=== PATIENT | female | born 1990 | race Hispanic/Latino ===

== ENCOUNTER → 2018-11-27 | Outpatient (REF) ==
[~2018-11-27] MED LIST: AMOXICILLIN500 MG OR; BACTRIM DS1 TAB PO; CEPHALEXIN500 MG PO; CIPROFLOXACN500 MG PO; LORTAB5 PO; MEDDOSEPAK PO; MOTRIN800 MG/TAB PO; PRENATA4 PO; ULTRAM50 M1 PO; ULTRAM50 MG PO; ZOFRAN ODT8 MG PO; ZOFRAN4 MG/TAB PO
== END | disposition home or self-care (01) | DRG 641 ==
LOC: LAB 10:33
PROVIDERS: ATTEND Nurse Practitioner Adult Health
DX: R73.9 Hyperglycemia, unspecified (principal)

== ENCOUNTER 2021-12-26 21:47 | Emergency (ER) | payer BC ==
[~2021-12-26] VITALS: Ht 149.9 cm; Wt 88.0 kg
[2021-12-26 22:05] VITALS: BP 132/82
[2021-12-26 22:15] VITALS: BP 138/79
[2021-12-26 22:59] VITALS: BP 123/71
[2021-12-26 23:01] LABS: IMMATURE GRANULOCYTES 0.1 % (0.0-5.0); MEAN CORPUSCULAR HGB 28.9 pG CALC (26.0-32.0); MEAN CORPUSCULAR HGB CONC 32.1 g/dL CAL (32.0-36.0); NEUT# 8.9 thou/uL (2.00-7.15); RED BLOOD COUNT 4.32 mill/uL (4.20-5.60); RED CELL DISTRI WIDTH 12.4 % (11.5-15.5)
[2021-12-26 23:05] LABS: HEMATOCRIT 38.9 % (37.0-47.0); HEMOGLOBIN 12.5 g/dl (12.0-16.0)
[2021-12-26 23:06] LABS: URINE BILIRUBIN - DIPSTICK NEGATIVE (NEGATIVE); URINE BLOOD DIPSTICK TRACE-INTACT (NEGATIVE); URINE COLOR YELLOW; URINE GLUCOSE - DIPSTICK NEGATIVE (NEGATIVE); URINE KETONE NEGATIVE (NEGATIVE); URINE LEUK ESTERASE NEGATIVE (NEGATIVE); URINE PROTEIN - DIPSTICK NEGATIVE (NEG-TRACE); URINE SPECIFIC GRAVITY 1.025; URINE UROBILINOGEN - DIPSTICK 0.2 E.U./dL (0.2)
[2021-12-26 23:09] LABS: URINE NITRITE - DIPSTICK NEGATIVE (Negative)
[2021-12-26 23:15] VITALS: BP 126/72
[2021-12-26 23:35] LABS: ALBUMIN 4.3 g/dL (3.2-5.0); ALKALINE PHOSPHATASE 96 u/l (38-126); BUN 13 mg/dL (7-17); BUN/CREATININE RATIO 15 (12-20 (CALC)); CHLORIDE 107 mmol/l (95-108); CREATININE 0.9 mg/dL (0.5-1.0); ETHYL ALCOHOL 0 mg/dl (0-30); GFR > 60 ML/MIN (>=60 (CALC)); GFR FOR AFR.AMER. > 60 ML/MIN (>=60 (CALC)); LIPASE 73 u/l (23-300); POTASSIUM 3.6 mmol/l (3.5-5.1); SGOT/AST 28 u/l (14-36); SODIUM 141 mmol/l (137-146); TOTAL PROTEIN 7.7 g/dL (6.3-8.2)
[2021-12-26 23:36] LABS: ANION GAP 18 (6-22 (CALC)); BILIRUBIN, TOTAL 0.3 mg/dL (0.0-1.4); CARBON DIOXIDE 20 mmol/l (22-30)
[2021-12-26 23:46] VITALS: BP 115/66
[2021-12-27] MEDS ORDERED: XANAX0.25 MG PO (00:13)
[2021-12-27 00:20] VITALS: BP 115/66
== END 2021-12-27 00:20 | disposition home or self-care (01) | DRG 880 ==
LOC: ED 21:47
DX: F41.0 Panic disorder [episodic paroxysmal anxiety] (principal); Z20.822 Contact with and (suspected) exposure to COVID-19
CPT/HCPCS: J2060